=== PATIENT | male | born 1990 | race Caucasian/White ===

== ENCOUNTER 2020-07-27 13:11 | Emergency (ER) | payer SELFPAY ==
[~2020-07-27] VITALS: Ht 172.7 cm; Wt 56.8 kg
[2020-07-27 13:18] VITALS: TEMP 98.7
[2020-07-27] MEDS ORDERED: ZITHROMAX Z PA250 MG PO (13:46)
[2020-07-27 13:48] VITALS: BP 111/68; PULSE 87
== END 2020-07-27 13:48 | disposition home or self-care (01) ==
LOC: COL.ER 13:11
DX: J20.9 Acute bronchitis, unspecified (principal); J04.0 Acute laryngitis